=== PATIENT | female | born 1975 | race Two or more races ===

== ENCOUNTER → 2024-07-08 | Outpatient (CLI) | payer OTHER, SELFPAY ==
--- NOTE | 2024-07-08 14:00 | XR_ITS ---
Examination: Breast ultrasound, unilateral, left Date and time of exam: July 08, 2024 1405 hours INDICATIONS: Outside mammogram April 20, 2024 18 mm focal asymmetry upper outer quadrant left breast Technique: Real-time mistry scale ultrasonographic imaging performed left breast including all 4 quadrants as well as nipple retroareolar and axillary region. Findings: 3:00 cyst 6 x 5 mm No solid nodules IMPRESSION: BI-RADS Category 2: Benign findings
--- NOTE | 2024-07-08 14:30 | XR_ITS ---
Examination: Diagnostic digital mammography, unilateral, left Computer aided detection 3-D breast Tomosynthesis, unilateral Date and time of exam: July 08, 2024 1418 hours INDICATIONS: Architectural distortion upper outer left breast on outside mammogram April 20, 2024 Technique: Nonmagnified MLO, CC views of the left breast have been obtained, reconstructed from 3-D Tomosynthesis images. R2 computer aided detection program utilized for evaluation of suspicious masses and/or abnormal calcifications. 3-D Tomosynthesis images obtained. Findings: 3 cm mass with indistinct margins upper outer left breast The breast is heterogeneously dense, which may obscure small masses Impression: BI-RADS category 4: Suspicious for malignancy Suspicious mass upper outer left breast, biopsy is needed to exclude breast carcinoma, this mass is amenable to ultrasound-guided breast biopsy for diagnosis
== END | disposition home or self-care (01) ==
LOC: CDIM 13:46
PROVIDERS: PCP Family Medicine; Referring Provider Family Medicine; Visit Provider Family Medicine
DX: R92.342 Mammographic extreme density, left breast (principal); N64.89 Other specified disorders of breast
CPT/HCPCS: 76641; 77061; 77065; G0279

== ENCOUNTER → 2024-09-06 | Outpatient (CLI) | payer OTHER, SELFPAY ==
[2024-09-06 07:26] LABS: Basophils # (Auto) 0.1 Thou/mm3 (0.0-0.2); Basophils % (Auto) 1 % (0-2.5); Eosinophils # (Auto) 0.3 Thou/mm3 (0.0-0.5); Eosinophils % (Auto) 3 % (0-10); Hematocrit 34.6 % (36.0-46.0); Hemoglobin 11.2 g/dL (12.0-16.0); Immature Granulocytes Auto 0.04 Thou/mm3 (0.00-0.00); Lymphocytes # (Auto) 3.1 Thou/mm3 (1.0-4.8); Lymphocytes % (Auto) 28 % (10-50); Mean Corpuscular HGB Conc 32.4 g/dl (31.0-37.0); Mean Corpuscular Hemoglobin 25.6 pg (25.0-35.0); Mean Corpuscular Volume 79 fL (80-100); Monocytes # (Auto) 0.6 Thou/mm3 (0.0-0.8); Monocytes % (Auto) 6 % (0-12); Neutrophils # (Auto) 6.7 Thou/mm3 (1.8-7.7); Neutrophils % (Auto) 62 % (37-80); Nucleated Red Blood Cell # 0.00 Thou/mm3 (0.00-0.00); Nucleated Red Blood Cell % 0 /100 WBC (0); Platelet Count 418 Thou/mm3 (140-440); RDW Standard Deviation 45.9 fL (36.4-46.3); Red Blood Count 4.38 Miln/mm3 (4.00-5.20); White Blood Count 10.8 Thou/mm3 (3.6-11.0)
[2024-09-06 07:42] LABS: INR 1.0 (0.9-1.3); Partial Thromboplastin Time 28.2 Seconds (22.0-36.0); Prothrombin Time 10.9 Seconds (9.0-12.2)
--- NOTE | 2024-09-06 09:30 | XR_ITS ---
Examinations: Ultrasound-guided percutaneous breast biopsy, left breast 2:00 nodule Left breast sonography limited INDICATIONS: BI-RADS 4 suspicious nodule 2:00 position left breast on mammogram July 08, 2024. Exam date and time: September 06, 2024 1001 hours. Informed consent provided. Technique: A timeout was completed verifying correct patient, procedure, site, positioning, and special equipment if applicable Informed consent provided. The patient was placed in a supine position for the breast biopsy. Sonographic images of the breast were performed for localization of the suspicious nodule The patient's breast was prepped and draped in sterile fashion. Maximum sterile barrier technique, hand hygiene, ultrasound sterile technique 1% lidocaine was used to anesthetize the skin and breast adjacent to the suspicious nodule. Utilizing ultrasonographic guidance, 8 core biopsies were obtained of the suspicious nodule utilizing an 18-gauge BioPince needle. The specimens appears satisfactory. US guided breast biopsy marker placement. Estimated blood loss 3 cc. The patient tolerated the procedure well and there were no complications. Impression: Successful ultrasound-guided percutaneous breast biopsy, left breast 2:00 nodule. Ultrasound guided breast biopsy marker placement.
== END | disposition home or self-care (01) ==
LOC: SDIM 09-09 07:39
PROVIDERS: Radiology Diagnostic Radiology; PCP Family Medicine; Referring Provider Family Medicine; Visit Provider Family Medicine
DX: C50.412 Malignant neoplasm of upper-outer quadrant of left female breast (principal); Z17.0 Estrogen receptor positive status [ER+]; Z17.21 Progesterone receptor positive status
CPT/HCPCS: 19083; 36415; 85025; 85610; 85730; A4648

== ENCOUNTER 2024-09-28 07:45 | Outpatient (RCR) | payer MEDICAID, SELFPAY ==
--- NOTE | 2024-09-28 10:01 | CTCCONSULT_ITS ---
[facility] [address] [place], [place] [address] Consultation Note Date: 09/28/2024 MR#: [id number] Name: TARIQ JORGE : 1975 Dx: C50.412 Malignant neoplasm of upper-outer quadrant of left female breast Referring physician. 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 Patient with recent diagnosis of invasive ductal carcinoma left breast History of Present Illness: Patient is a 49-year-old lady noted to have a suspicious nodule 2 o'clock position left breast on screening mammogram of 04/24/2024 1.8 cm upper outer quadrant left breast. Underwent biopsy 09/06/2024 revealing invasive ductal carcinoma largest focus 1 cm ER/MD positive HER2/shae 1+ negative Ki-67 was low at 5%. Patient now referred to the cancer treatment center. Past Medical History: Asthma Meds. Alert benedict contraception ring Allergies to codeine Family history. No cancer or breast cancers in family. 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 First age 16 2 pregnancies 2 births Review of Systems: Monegasque-speaking originally from [place] Physical Exam: General: Adequately nourished appearing lady no acute distress HEENT: Atraumatic no cephalic extraocular muscle intact no oral lesions no cervical or supraclavicular adenopathy CV: Chest clear to auscultation breast not examined today ABD: Soft organomegaly tenderness EXT: No signs of clubbing or edema. Assessment:#1. Clinical stage I right breast CA , biopsy performed invasive ductal carcinoma receptor positive HER2/shae negative. Ki-67 low at 5%. #2. Dr. Cloud medical oncologist scheduled see her in a few days. #3. Unsure whether she was referred to general surgeon, informed patient of the surgeons available in the area and told her to bring this up with the primary care physician [facility]. #4. Given a follow-up with me to see her in 2 months when pt would have seen all the specialists and breast surgery likely would have been performed at that time. 5. Thank you very much for referring patient to the cancer treatment center. Cc: [facility]/Zee Clark TRUCK LO[employer]ER [employer] UNLOADER Electronically signed by: Hank Jaramillo MD, DABR 09/28/2024 9:59 AM
--- NOTE | 2024-09-28 18:07 | CTCCONSULT_ITS ---
[facility] [address] [place], [place] [address] Consultation Note Date: 09/28/2024 MR#: [id number] Name: TARIQ JORGE : 1975 Dx: C50.412 Malignant neoplasm of upper-outer quadrant of left female breast Addendum. In the assessment of the consultation note, it was noted that patient had right female breast CA, When she in fact had left breast cancer. Electronically signed by: Hank Jaramillo MD, FRANCKR 09/28/2024 6:05 PM
== END 2024-09-30 23:59 | disposition home or self-care (01) ==
LOC: SCTC 07:45
PROVIDERS: PCP Family Medicine; Referring Provider Radiology Therapeutic Radiology; Visit Provider Radiology Therapeutic Radiology
DX: C50.412 Malignant neoplasm of upper-outer quadrant of left female breast (principal); Z17.0 Estrogen receptor positive status [ER+]; Z17.21 Progesterone receptor positive status; Z17.32 Human epidermal growth factor receptor 2 negative status
CPT/HCPCS: 99213; G0463

== ENCOUNTER 2024-10-18 08:42 | Outpatient (RCR) | payer MEDICAID, SELFPAY ==
--- NOTE | 2024-10-18 10:26 | CTCCONSULT_ITS ---
Patient: TARIQ JORGE : 1975 MR#: [id number] Page 2 of 4 CONSULTATION NOTE DATE OF CONSULTATION: 10/18/2024 NAME: TARIQ JORGE ACCOUNT: [id number] : 1975 AGE: 49 REFERRING PHYSICIAN: Esteban Mahmood MD PRIMARY PHYSICIAN: REASON FOR VISIT: Left breast cancer ONCOLOGY HISTORY: DIAGNOSIS: Malignant neoplasm of upper-outer quadrant of left female breast [ICD10] C50.412 DATE OF DIAGNOSIS: 09/06/2024 PATHOLOGY: Invasive ductal cancer Er/pr psotoive her 2 neg STAGE/TNM: Unknown TREATMENT HISTORY: Care?Plan Start?Date Cycle Day Intent HISTORY OF PRESENT ILLNESS: 49-year-old male with new daognsois of left breast cancer . patient hwas diagnosed with mammogram. Had biopsy and yet to see surgeon. OTHER MEDICAL HISTORY/CONDITIONS: Left breast invasive ducatl carcinoma - dx 09/06/24 Seasonal allegies Left knee partial replacement - 2022 Left knee manipulation under anesthesia - 2020 Left TKA - 2021 FAMILY HISTORY: Patient?denies?family?cancer?history. 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 Tobacco?Use:?Denies ETOH?Use:?Denies Drug?Note:?Denies Social?History?Note:?Lives?with? [employer] LPN HISTORY: Menarche?-?Age:?14 Menopause:?ELIAZAR?MENIPAUSE?? Hormone?Use:?NuvarRing???10?YRS :?2 Live?Births:?2 Age?1st?:?16 MEDICATIONS: 1. Arimidex - 1 mg 1 tab Daily 2. Calcium 500 + D - 500 mg-10 mcg (400 unit) 2 tab Daily 3. Singulair - 10 mg 1 tab Daily Medications Last Reconciled by Nina Good RN on 10/18/2024 ALLERGIES: No Known Allergies; No Known Drug Allergies REVIEW OF SYSTEMS: A complete 14-point review of systems was performed and is negative except as noted in interval history. PHYSICAL EXAMINATION: VITAL SIGNS: Temperature?99.4, B/P?144/89, Height?61?inches, Oxygen?Saturation?99% Weight?228?lbs (Change?since?09/28/24:?1?lbs) PAIN: 0 - No pain ECOG Performance Status: 1 - Symptomatic; ambulatory; restricted in strenuous activity GENERAL APPEARANCE: Appears well, in no apparent distress, appropriately interactive. HEENT: Normocephalic, no temporal wasting, normal conjunctiva, no scleral icterus, normal hearing, lips without lesions, neck normal range of motion. CARDIOVASCULAR: Not assessed. PULMONARY: Normal respiratory effort, no respiratory distress or use of accessory muscles, speaking in full sentences, no tachypnea. EXTREMITIES: No pedal edema or cyanosis. SKIN: Normal skin appearance. NEUROLOGIC: Alert and oriented x4. PSHYCHIATRIC: Appropriate affect, mood normal, behavior normal, intact thought and speech. Breast ? 2 cm by [address] LABORATORY DATA: I have personally reviewed and interpreted each of the patient?s relevant lab tests, abnormal findings are below: Date ASSESSMENT/PLAN: Left breast cancer Left upper lobe Er/pr positive Started on arimidex On calcium and VIT D3 Rtc AFTER SURGERY Oncotype ordered ORDERS: Order # Description [id number] Comprehensive Metabolic Panel - 12 + CBC with Auto Diff + CA 15-3 [id number] MRI + Breast [id number] Estradiol + Gonadotropin (Fsh) + Gonadotropin; Luteinizing Hormone (Lh) [id number] MD Follow Up 2 Months [id number] [facility] Hereditary Cancer Test RETURN TO CLINIC: I reviewed the diagnosis, prognosis, and recommended treatment/procedure options with the patient (and/or their legal employee relations representative), including the potential benefits, risks, side effects and alternative therapies. We also discussed the option of no treatment and the possibility of clinical trial participation, if applicable. All questions were addressed, and they demonstrated understanding. They provided informed consent to proceed with the proposed plan of care. BILLING AND COMPLIANCE: I reviewed external records from providers outside my specialty as summarized above. I spent a total of 50 minutes on this patient?s care on the day of their visit excluding time spent related to any billed procedures. This time includes time spent with the patient as well as time spent documenting in the medical record, reviewing patients records and tests, obtaining history, placing orders, communicating with other healthcare professionals, counseling the patient, family or caregiver, and/or care coordination for the diagnoses above. Electronically Signed by: Scott Cloud MD T: 10:24 AM CC: Camilla? PCP: Referring: Esteban Mahmood This document was completed utilizing speech recognition software. Grammatical errors, random word insertions, pronoun errors, and incomplete sentences are an occasional consequence of this system due to software limitations, ambient noise, and hardware issues. Any formal questions or concerns about the content, text or information contained within the body of this dictation should be directly addressed to the provider for clarification.
== END 2024-10-31 23:59 | disposition home or self-care (01) ==
LOC: SCTC 08:42
PROVIDERS: PCP Family Medicine; Referring Provider Family Medicine; Visit Provider Internal Medicine Hematology & Oncology
DX: C50.412 Malignant neoplasm of upper-outer quadrant of left female breast (principal); Z17.0 Estrogen receptor positive status [ER+]; Z17.21 Progesterone receptor positive status
CPT/HCPCS: 99213; G0463

== ENCOUNTER 2024-11-30 13:13 | Outpatient (RCR) | payer MEDICAID, SELFPAY ==
--- NOTE | 2024-11-23 14:50 | CTCFLWUP_ITS ---
[facility] [address] [place], [place] [address] FOLLOW-UP NOTE Date: 11/23/2024 MR#: [id number] Name: TARIQ JORGE : 1975 Dx: C50.412 Malignant neoplasm of upper-outer quadrant of left female breast Identification. Patient with Left breast CA biopsy 09/06/2024 Patient reported has MRI pending and has not yet had surgical evaluation by Dr. Nolasco. Reschedule patient to see patient afterward. Electronically signed by: Hank Jaramillo M.D. 11/23/2024 2:48 PM
== END 2024-11-30 23:59 | disposition home or self-care (01) ==
LOC: SCTC 13:13
PROVIDERS: PCP Family Medicine; Referring Provider Family Medicine; Visit Provider Radiology Therapeutic Radiology
DX: C50.412 Malignant neoplasm of upper-outer quadrant of left female breast (principal); Z17.0 Estrogen receptor positive status [ER+]; Z17.21 Progesterone receptor positive status; Z17.32 Human epidermal growth factor receptor 2 negative status; Z79.811 Long term (current) use of aromatase inhibitors
CPT/HCPCS: 99213; 99424; 99425; G0463

== ENCOUNTER → 2024-12-03 | Outpatient (CLI) | payer MEDICAID, SELFPAY ==
[2024-12-03 16:32] LABS: HCG Qualitative,Urine Negative
== END | disposition home or self-care (01) ==
LOC: SLDO 12-09 08:12
PROVIDERS: Referring Provider Surgery; Visit Provider Surgery
DX: Z32.00 Encounter for pregnancy test, result unknown (principal)
CPT/HCPCS: 81025

== ENCOUNTER → 2025-01-30 | Outpatient (CLI) | payer MEDICAID, SELFPAY ==
[2025-01-26 12:29] LABS: HCG Qualitative,Urine Negative
--- NOTE | 2025-01-30 15:00 | XR_ITS ---
EXAMINATION: MRI breast bilateral without intravenous contrast MRI breast bilateral with intravenous contrast Date and time: January 30, 2025, 1504 hours INDICATIONS: Diagnosis malignant neoplasm of upper-outer quadrant of left female breast, positive needle biopsy September 09, 2024, mammogram July 08, 2024 3 cm mass indistinct margins upper outer left breast TECHNIQUE AND FINDINGS: Bilateral breast MRI images pre and post administration 20 cc gadolinium Heterogeneous breast density Minimal background breast enhancement Bilobed 3 cm mass outer left breast 2 o'clock position indistinct margins Post contrast images demonstrate rapid wash-in involving this mass More numerous left axillary lymph nodes on the left, the largest 18 mm No chest wall mass No dominant right breast lesion IMPRESSION: BI-RADS Category 5: Known 3 cm breast malignancy 2 o'clock position left breast More numerous left axillary lymph nodes, recommend this patient return for dedicated left breast axillary sonography with a radiologist in attendance
== END | disposition home or self-care (01) ==
LOC: SMRI 14:27
PROVIDERS: PCP Family Medicine; Referring Provider Surgery; Visit Provider Surgery
DX: C50.412 Malignant neoplasm of upper-outer quadrant of left female breast (principal)
CPT/HCPCS: 77049; 81025; A9577; C8908

== ENCOUNTER 2025-02-03 14:15 | Outpatient (RCR) | payer MEDICAID, SELFPAY ==
--- NOTE | 2025-02-03 15:20 | CTCFLWUP_ITS ---
Patient: TARIQ JORGE : 1975 Page 2 of 3 FOLLOW UP NOTE DATE OF SERVICE: 02/03/2025 NAME: TARIQ JORGE ACCOUNT: [id number] : 1975 AGE: 49 INTERVAL HISTORY: Patient says her last period was 5 years ago . she was still put on novaring so we are not sure she was in menopause . she says she was told by her doctor to stop harmone blocking therapy so she never took it.she lost her insurance and could not see surgeon . Spoke to Dr Nolasco , he informed me he will see her juan and do lumpectomy and port catheter placement. ONCOLOGY HISTORY: DIAGNOSIS: Malignant neoplasm of upper-outer quadrant of left female breast [ICD10] C50.412 DATE OF DIAGNOSIS: 09/06/2024 PATHOLOGY: Invasive ductal cancer Er/pr psotoive her 2 neg STAGE/TNM: Unknown TREATMENT HISTORY: Care?Plan Start?Date Cycle Day Intent HISTORY OF PRESENT ILLNESS: 49-year-old male with new daognsois of left breast cancer . patient hwas diagnosed with mammogram. Had biopsy and yet to see surgeon. OTHER MEDICAL HISTORY/CONDITIONS: Left breast invasive ducatl carcinoma - dx 09/06/24 Seasonal allegies Left knee partial replacement - 2022 Left knee manipulation under anesthesia - 2020 Left TKA - 2021 FAMILY HISTORY: Patient?denies?family?cancer?history. 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 Tobacco?Use:?Denies ETOH?Use:?Denies Drug?Note:?Denies Social?History?Note:?Lives?with? [employer] HISTORY: Menarche?-?Age:?14 Menopause:?ELIAZAR?MENIPAUSE?? Hormone?Use:?NuvarRing???10?YRS :?2 Live?Births:?2 Age?1st?:?16 MEDICATIONS: 1. Arimidex - 1 mg 1 tab Daily 2. Calcium 500 + D - 500 mg-10 mcg (400 unit) 2 tab Daily 3. Singulair - 10 mg 1 tab Daily Medications Last Reconciled by Lilliam Silva MD on 02/03/2025 ALLERGIES: No Known Allergies; No Known Drug Allergies REVIEW OF SYSTEMS: A complete 14-point review of systems was performed and is negative except as noted in interval history. PHYSICAL EXAMINATION: VITAL SIGNS: PAIN: 1 - Between no and mild pain ECOG Performance Status: 0 - Asymptomatic and fully active GENERAL APPEARANCE: Appears well, in no apparent distress, appropriately interactive. HEENT: Normocephalic, no temporal wasting, normal conjunctiva, no scleral icterus, normal hearing, lips without lesions, neck normal range of motion. CARDIOVASCULAR: Not assessed. PULMONARY: Normal respiratory effort, no respiratory distress or use of accessory muscles, speaking in full sentences, no tachypnea. EXTREMITIES: No pedal edema or cyanosis. SKIN: Normal skin appearance. NEUROLOGIC: Alert and oriented x4. PSHYCHIATRIC: Appropriate affect, mood normal, behavior normal, intact thought and speech. Breast ? 2 cm by [address] LABORATORY DATA: I have personally reviewed and interpreted each of the patient?s relevant lab tests, abnormal findings are below: Date ASSESSMENT/PLAN: Left breast cancer Left upper lobe Er/pr positive Will start on tamoxifen On calcium and VIT D3 Stop tamoxifen 2-3 days before surgery Resume after surgery once ambulatory Patient will need chemotherapy as have palpable lymphnodes ORDERS: Order # Description [id number] Comprehensive Metabolic Panel - 12 + CBC with Auto Diff [id number] Ferritin + Vitamin B-12 + Folic Acid; Serum + Iron Panel [id number] Estradiol [id number] Gonadotropin; Luteinizing Hormone (Lh) + Gonadotropin (Fsh) [id number] Oncotype Dx RETURN TO CLINIC: I reviewed the diagnosis, prognosis, and recommended treatment/procedure options with the patient (and/or their legal account services representative), including the potential benefits, risks, side effects and alternative therapies. We also discussed the option of no treatment and the possibility of clinical trial participation, if applicable. All questions were addressed, and they demonstrated understanding. They provided informed consent to proceed with the proposed plan of care. BILLING AND COMPLIANCE: I reviewed external records from providers outside my specialty as summarized above. I spent a total of 50 minutes on this patient?s care on the day of their visit excluding time spent related to any billed procedures. This time includes time spent with the patient as well as time spent documenting in the medical record, reviewing patients records and tests, obtaining history, placing orders, communicating with other healthcare professionals, counseling the patient, family or caregiver, and/or care coordination for the diagnoses above. Electronically Signed by: Scott Cloud MD T: 3:17 PM CC: Hank?Ella? PCP: Referring: Scott Cloud This document was completed utilizing speech recognition software. Grammatical errors, random word insertions, pronoun errors, and incomplete sentences are an occasional consequence of this system due to software limitations, ambient noise, and hardware issues. Any formal questions or concerns about the content, text or information contained within the body of this dictation should be directly addressed to the provider for clarification.
[2025-02-03 15:52] LABS: Basophils # (Auto) 0.1 Thou/mm3 (0.0-0.2); Basophils % (Auto) 1 % (0-2.5); Eosinophils # (Auto) 0.3 Thou/mm3 (0.0-0.5); Eosinophils % (Auto) 3 % (0-10); Hematocrit 35.9 % (36.0-46.0); Hemoglobin 11.3 g/dL (12.0-16.0); Immature Granulocytes Auto 0.02 Thou/mm3 (0.00-0.00); Lymphocytes # (Auto) 3.1 Thou/mm3 (1.0-4.8); Lymphocytes % (Auto) 33 % (10-50); Mean Corpuscular HGB Conc 31.5 g/dl (31.0-37.0); Mean Corpuscular Hemoglobin 25.8 pg (25.0-35.0); Mean Corpuscular Volume 82 fL (80-100); Monocytes # (Auto) 0.5 Thou/mm3 (0.0-0.8); Monocytes % (Auto) 5 % (0-12); Neutrophils # (Auto) 5.5 Thou/mm3 (1.8-7.7); Neutrophils % (Auto) 58 % (37-80); Nucleated Red Blood Cell # 0.00 Thou/mm3 (0.00-0.00); Nucleated Red Blood Cell % 0 /100 WBC (0); Platelet Count 432 Thou/mm3 (140-440); RDW Standard Deviation 46.8 fL (36.4-46.3); Red Blood Count 4.38 Miln/mm3 (4.00-5.20); White Blood Count 9.4 Thou/mm3 (3.6-11.0)
[2025-02-03 16:17] LABS: Alanine Aminotransferase 13 U/L (10-49); Albumin, Serum 4.9 gm/dL (3.5-5.0); Albumin/Globulin Ratio 1.3 (1.2-2.2); Alkaline Phosphatase 119 U/L (46-116); Anion Gap 8 (7-16); Aspartate Amino Transferase 17 U/L (0-34); BUN/Creatinine Ratio 17 Ratio (12-20); Bilirubin,Total 0.2 mg/dL (0.3-1.2); Blood Urea Nitrogen 10 mg/dL (9-23); Calcium 9.4 mg/dL (8.3-10.6); Calcium (Corrected) 9.4 mg/dL (8.5-10.1); Carbon Dioxide 28.4 mMol/L (20.0-31.0); Chloride 104 mMol/L (98-107); Creatinine (Component) 0.6 mg/dL (0.6-1.3); Globulin 3.7 gm/dL (2.3-3.5); Glucose 129 mg/dL (74-106); Osmolality,Calculated 280 (275-295); Potassium 3.9 mMol/L (3.4-5.1); Sodium 140 mMol/L (136-145); Total Protein 8.6 gm/dL (5.7-8.2); eGFR > 60 See Note
[2025-02-03 16:20] LABS: Ferritin 21 ng/mL (7.3-270.7); Folate 14.13 ng/mL (>5.38); Follicle Stimulating Hormone 69.80 mIU/mL (See Note); Iron 20 mcg/dL (50-170); Percent Iron Saturation 5 % (20-55); Total Iron Binding Capacity 398 mcg/dL (250-425); Unsaturated Iron Binding 378 (225-295); Vitamin B12 466 pg/mL (211-911)
[2025-02-09 06:33] LABS: Luteinizing Hormone* 32.8 mIU/mL
[2025-02-10 06:36] LABS: Estradiol, Ultrasensitive* 10 pg/mL
== END 2025-03-02 23:59 | disposition home or self-care (01) ==
LOC: SCTC 14:15
PROVIDERS: PCP Family Medicine; Referring Provider Internal Medicine Hematology & Oncology; Visit Provider Internal Medicine Hematology & Oncology
DX: C50.412 Malignant neoplasm of upper-outer quadrant of left female breast (principal); Z17.0 Estrogen receptor positive status [ER+]; Z17.21 Progesterone receptor positive status; Z17.32 Human epidermal growth factor receptor 2 negative status; Z79.810 Long term (current) use of selective estrogen receptor modulators (SERMs)
CPT/HCPCS: 36415; 80053; 82607; 82670; 82728; 82746; 83001; 83002; 83540; 83550; 85025; 99211; 99212; G0463

== ENCOUNTER → 2025-02-13 | Outpatient (CLI) | payer MEDICAID, SELFPAY ==
--- NOTE | 2025-02-13 07:00 | ECHO_ITS ---
Patient Info Name: Rosita Torrez Age: 49 years : 1975 Gender: Female Ht: 157 cm Wt: 101 kg BSA: 2.15 m2 BP: 139 / 68 mmHg HR: 92 bpm Exam Date: 02/13/2025 6:31 AM Admit Date: 02/13/2025 Site: [facility] Room Number: OP Patient Status: P Exam Type: CA echo doppler complete Boat Hoist Operator: Madeleine Cary Ordering Physician: Scott Cloud Referring Physician: Scott Cloud Study Info Indications Malignant neoplasm of upper-outer quadrant of left female br - Primary Location: SDIM Left Ventricular Outflow Tract Name Value Normal LVOT 2D LVOT Diameter 2.1 cm LVOT Doppler LVOT Peak Velocity 88 cm/s LVOT Mean Gradient 1 mmHg LVOT VTI 20 cm LVOT VTI/AV VTI Ratio 0.7 LVOT Stroke Volume 69 ml Pulmonic Valve Name Value Normal PV Doppler PV Peak Velocity 98 cm/s Mitral Valve Name Value Normal MV Doppler MV Decel Martin 1,095 cm/s2 MV PHT 21 ms MV Area (PHT) 10.3 cm2 4.0-5.0 MV Diastolic Function MV E Peak Velocity 81 cm/s MV A Peak Velocity 72 cm/s MV E/A 1.1 MV Annular TDI MV Septal e' Velocity 7.2 cm/s MV E/e' (Septal) 11.3 MV Lateral e' Velocity 8.7 cm/s MV E/e' (Lateral) 9.3 MV e' Average 7.94 cm/s MV E/e' (Average) 10.3 Tricuspid Valve Name Value Normal TV Regurgitation Doppler TR Peak Velocity 247 cm/s Estimated PAP/RSVP RA Pressure 3 mmHg <=5 PA Systolic Pressure 27 mmHg <36 RV Systolic Pressure 27 mmHg <36 TV Annular TDI TV Lateral Amara s' Velocity 13.3 cm/s >=9.5 Aortic Valve Name Value Normal AV 2D/MM AV Cusp Sep (MM) 2.3 cm AV Doppler AV Peak Velocity 128 cm/s AV Mean Gradient 4 mmHg AV VTI 29 cm AV Area (Cont Eq VTI) 2.4 cm2 >=3.0 AV Area (Cont Eq Florin) 2.4 cm2 AV DI (Florin) 0.69 AV Regurgitation 2D LVOT Area 3.5 cm2 Ventricles Name Value Normal LV Dimensions 2D/MM IVS Diastolic Thickness (2D) 0.9 cm 0.6-0.9 LVID Diastole (2D) 4.7 cm 3.8-5.2 LVIW Diastolic Thickness (2D) 0.9 cm 0.6-0.9 LVID Systole (2D) 3.0 cm 2.2-3.5 LVOT Diameter 2.1 cm LV Mass (2D Cubed) 142.71 g 67.00-162.00 LV Mass Index (2D Cubed) 66 g/m2 43-95 Relative Wall Thickness (2D) 0.38 <=0.42 IVS/LVIW Diastolic Thickness (2D) 1.00 0.00-1.50 LV Fractional Shortening/Ejection Fraction 2D/MM LV Fractional Shortening (2D) 36 % 27-45 LV EF (2D Teichholz) 66 % RV Dimensions 2D/MM TV Lateral Amara s' Velocity 13.3 cm/s >=9.5 Atria Name Value Normal LA Dimensions LA Volume (4C A-L) 34 ml LA Volume (BP A-L) 30 ml Left Ventricle Left ventricular chamber dimension is normal. Left ventricular systolic function is normal with visually estimated ejection fraction of 60-65%. There is normal geometry noted in the left ventricle. Left ventricular segmental wall motion is normal. There is normal diastolic function in the left ventricle. Right Ventricle Right ventricular chamber dimension is normal. Right ventricular systolic function is normal. Left Atrium Left atrial chamber dimension is normal. Right Atrium Right atrial chamber dimension is normal. Aortic Valve The aortic valve is trileaflet. There is no aortic valve sclerosis. There is no aortic valve stenosis with a peak velocity of 128 cm/s, mean gradient of 4 mmHg, and aortic valve area of 2.4 cm2. There is no aortic valve regurgitation. Pulmonic Valve The pulmonic valve is normal. There is no pulmonic valve stenosis. There is no pulmonic regurgitation. Mitral Valve The mitral valve has normal leaflets. There is no mitral valve stenosis. There is trace mitral valve regurgitation. Tricuspid Valve The tricuspid valve leaflets are normal. There is no tricuspid valve stenosis. There is mild tricuspid valve regurgitation. No pulmonary hypertension, estimated pulmonary arterial systolic pressure is 27 mmHg and systemic blood pressure of 139 mmHg in systole. Pericardium/Pleural The pericardium appears normal. There is no pericardial effusion. No pleural effusion visualized. Inferior Vena Cava Normal inferior vena cava with >50% collapse upon inspiration consistent with normal right atrial pressure, 3 mmHg. Aorta The aortic measurements are indexed to age and body surface area. The aortic root at the sinus of Valsalva is not well visualized. The prox ascending aorta is not well visualized. Summary 1. Left ventricle size is normal and systolic function is normal. Estimated ejection fraction is 60-65%. There is normal diastolic function. 2. Right ventricle chamber size is normal and systolic function is normal. Estimated RVSP is 27 mmHg. 3. There is trace mitral valve regurgitation. 4. There is mild tricuspid valve regurgitation. 5. Normal IVC with estimated RA pressure 3 mmHg. Report Signatures Finalized by Ginny Kenney on 02/13/2025 02:44 PM
== END | disposition home or self-care (01) ==
LOC: SDIM 02-17 07:51
PROVIDERS: PCP Family Medicine; Referring Provider Internal Medicine Hematology & Oncology; Visit Provider Internal Medicine Hematology & Oncology
DX: I08.1 Rheumatic disorders of both mitral and tricuspid valves (principal); C50.412 Malignant neoplasm of upper-outer quadrant of left female breast
CPT/HCPCS: 93306